=== PATIENT | female | born 1985 | race Caucasian/White ===

== ENCOUNTER 2022-04-30 02:20 | Emergency (ER) | payer MEDICAID, SELFPAY ==
[2022-04-30 02:24] VITALS: BP 142/102; PULSE 99; RESP 18; TEMP 36.7; O2SAT 98; BMI 35.9
--- NOTE | 2022-04-30 02:31 | XRR_ITS ---
PROCEDURE INFORMATION: Exam: XR Right Foot Exam date and time: 04/30/2022 2:34 AM Age: 36 years old Clinical indication: Right; Patient HX: C/O RT foot pain along lateral border of foot. No injury. TECHNIQUE: Imaging protocol: Radiologic exam of the Right foot. Views: 3 or more views. COMPARISON: No relevant prior studies available. FINDINGS: Bones/joints: No acute fracture or malalignment. Mild hallux valgus deformity with mild 1st MTP joint degenerative changes. Calcaneal enthesopathy. Soft tissues: Normal. XR/XR foot RT min 3V* [id number] IMPRESSION: No acute fracture or malalignment.
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
[2022-04-30] MEDS: naproxen 500 mg Tablet PO (02:55)
[2022-04-30] MEDS: HYDROcodone-acetaminophen 5-325 mg Tablet 1 TAB PO (02:55)
== END 2022-04-30 03:00 | disposition home or self-care (01) ==
PROVIDERS: Emergency Provider Nurse Practitioner Family
DX: M20.11 Hallux valgus (acquired), right foot (principal); M77.31 Calcaneal spur, right foot
CPT/HCPCS: 73630; 99283

== ENCOUNTER 2023-11-20 11:16 | Emergency (ER) | payer MEDICAID, SELFPAY ==
--- NOTE | 2023-11-20 11:18 | XR_ITS ---
WS: [id number] Exam: XR chest 1V portable [id number] Date/Time of Exam: 11/20/2023 11:18 AM Reason For Exam: cough Findings: The lungs are clear and fully expanded. Costophrenic angles are sharp. No infiltrates. Bronchovascula r relief appears normal. Cardiac silhouette is unremarkable. Bony elements are intact. IMPRESSION: Unremarkable chest radiograph.
[2023-11-20 11:56] VITALS: BP 134/88; PULSE 101; RESP 16; TEMP 36.7; O2SAT 98
--- NOTE | 2023-11-20 12:18 | ED_ITS ---
HPI - General Adult 2 General: Chief complaint: General Medical Stated complaint: cough Time Seen by Provider: 11/20/23 11:18 Source: patient Mode of arrival: ambulatory Limitations: no limitations History of Present Illness: 38-year-old female states over the last months she has had a continuous cough. States has been a nonproductive cough has been much worse at night she denies any chest pain she denies any shortness of breath she had no vomiting. States she has been on Augmentin along with steroids with minimal improvement. Associated symptoms: Deny chest pain, dyspnea, headache(s), nausea, rash or vomiting Review of Systems 2 Const: Denies: fever(s), chills, body aches or change in appetite ENMT: Denies: throat pain or dental pain Card: Denies: chest pain Resp: Reports: non-productive cough; Denies: dyspnea GI: Denies: abdominal pain, nausea, vomiting or diarrhea Musc: Denies: neck pain or back pain Skin/Breast: Denies: rash Neuro: Denies: headache(s) Physical Exam 2 Const: COMMON NORMALS: no acute distress, patient oriented x3 and healthy appearing HENMT: COMMON NORMALS: normocephalic and atraumatic HEAD & SCALP: n ormocephalic and atraumatic Eye: COMMON NORMALS: conjunctivae normal CONJUNCTIVA: Yes conjunctivae normal Neck/C-Spine: COMMON NORMALS: full ROM and supple Chest: COMMONS NORMALS: normal inspection of the chest Resp: COMMON NORMALS: normal respiratory effort, No retractions, No use of accessory muscles and clear to auscultation bilaterally AUSCULTATION: clear to auscultation bilaterally Cardio: COMMON NORMALS: regular rate, regular rhythm and No murmurs present (Cardio) RATE: regular rate RHYTHM: regular rhythm Extremity: COMMON NORMALS: normal to inspection and full ROM Neuro: COMMON NORMALS: patient oriented x3, moves all extremities and no focal motor deficits Psych: COMMON NORMALS: mental status grossly normal, Normal thought process present and cooperative THOUGHT PROCESS: Normal thought process present Skin: COMMON NORMALS: no rashes or lesions noted and no wounds GENERAL SKIN EXAM: no rashes or lesions noted Course 2 Vital Signs: Vital signs: Vital Signs Temperature 98.0 F 11/20/23 11:56 Pulse Rate 103 H 11/20/23 13:15 Respiratory Rate 18 11/20/23 13:15 Blood Pressure 134/88 11/20/23 11:56 Pulse Oximetry 99 11/20/23 13:15 Oxygen Delivery Me thod Room Air 11/20/23 13:15 MDM - General Adult Medical Decision Making Patient presents with cough has been ongoing she is well-appearing here x-ray blood works normal she is concerned about pertussis will send off pertussis lab Medical Records I reviewed the patient's medical records. Lab Data I reviewed the patient's lab results. 11/20/23 12:27 11/20/23 12:27 Laboratory Results WBC 10.11 10^3/uL (3.29-11.43) 11/20/23 12: RBC 4.28 10^6/uL (3.85-5.65) 11/20/23 12: Hgb 13.80 g/dL (11.27-16.99) 11/20/23 12: Hct 40.1 % (36-47) 11/20/23 12: MCV 93.7 fl (85-98) 11/20/23 12: MCH 32.2 pg (27-33) 11/20/23 12: MCHC 34.4 g/dL (30-55) 11/20/23 12: RDW 12.5 % (12.1-15.1) 11/20/23 12: Plt Count 249 10^3/cmm (157-399) 11/20/23 12: MPV 9.2 fL (7.4-10.4) 11/20/23 12: Neut % (Auto) 62.2 % 11/20/23 12: Lymph % (Auto) 27.4 % 11/20/23 12: Grainger % (Auto) 6.8 % 11/20/23 12: Eos % (Auto) 3.0 % 11/20/23 12: Baso % (Auto) 0.4 % 11/20/23 12: Neut # (Auto) 6.29 10^3/uL (1.8-7.7) 11/20/23 12: Lymph # (Auto) 2.8 10^3/uL (0.8-4.8) 11/20/23 12:27 Grainger # (Auto) 0.7 10^3/uL (0.2-0.9) 11/20/23 12:27 Eos # (Auto) 0.3 10^3/uL (0.0-0.8) 11/20/23 12: Baso # (Auto) 0.0 10^3/uL (0.0-0.1) 11/20/23 12:27 Nucleated RBC % (auto) 0 % 11/20/23 12: Nucleated RBCs # 0.0 /100WBC 11/20/23 12:27 Sodium 137 mmol/L (136-145) 11/20/23 12: Potassium 3.6 mmol/L (3.5-5.1) 11/20/23 12: Chloride 99 mmol/L (98-107) 11/20/23 12: Carbon Dioxide 26 mmol/L (22-29) 11/20/23 12: Anion Gap 15.6 (5-19) 11/20/23 12: BUN 15 mg/dL (6-20) 11/20/23 12: Creatinine 0.4 mg/dL (0.5-0.9) L 11/20/23 12:27 GFR Calculation 177.7 mL/min (90-130) H 11/20/23 12: Glucose 93 mg/dL (65-115) 11/20/23 12: Calculated Osmolality 285 mOsm/kg (285-295) 11/20/23 12: Calcium 9.5 mg/dL (8.5-10.5) 11/20/23 12: Total Bilirubin 0.5 mg/dL (0.15-1.2) 11/20/23 12: AST 21 U/L (0-32) 11/20/23 12:27 ALT 21 U/L (0-33) 11/20/23 12:27 Alkaline Phosphatase 79 U/L (35-105) 11/20/23 12:27 Total Protein 7.1 g/dL (6.6-8.7) 11/20/23 12: Albumin 4.3 g/dL (3.5-5.2) 11/20/23 12: Globulin 2.8 g/dL (1.3-4.6) 11/20/23 12:27 All radiology interpretation(s) finalized by discharge Discharge Plan Discharge Patient Disposition: Home Clinical Impression: Cough Condition: Stable Prescriptions: No Action simvastatin 10 mg tablet 10 mg PO QPM valsartan-hydrochlorothiazide 160-25 mg tablet 1 tab PO QAM Discharge Orders: Discharge ED (Routine); Ordered 11/20/23 Ordered By: Jose Garcia Referrals: Wayne Petit MD [Primary Care Provider] - 1-3 days Discharge Diet: Advance as tolerated Discharge Activity: Resume usual activity Patient Instructions: Acute Cough (ED) Coding Level of Care Code ED Manager [employer] Processing for Serafin Cueto
[2023-11-20] MEDS: dexamethasone 10 mg/mL INJ IM (12:22)
[2023-11-20 12:36] LABS: Basophils % 0.4 %; Eosinophils # 0.3 10^3/uL (0.0-0.8); Hematocrit 40.1 % (36-47); Lymphocytes # 2.8 10^3/uL (0.8-4.8); Lymphocytes % 27.4 %; Mean Corpuscular HGB Conc 34.4 g/dL (30-55); Mean Corpuscular Hemoglobin 32.2 pg (27-33); Mean Corpuscular Volume 93.7 fl (85-98); Mean Platelet Volume 9.2 fL (7.4-10.4); Monocytes # 0.7 10^3/uL (0.2-0.9); Monocytes % 6.8 %; Neutrophils # 6.29 10^3/uL (1.8-7.7); Neutrophils % 62.2 %; Nucleated Red Blood Cells % 0 %; Platelet Count 249 10^3/cmm (157-399); Red Blood Count 4.28 10^6/uL (3.85-5.65); Red Cell Distribution Width 12.5 % (12.1-15.1); White Blood Count 10.11 10^3/uL (3.29-11.43)
[2023-11-20 12:53] LABS: Alanine Aminotransferase 21 U/L (0-33); Albumin Level 4.3 g/dL (3.5-5.2); Alkaline Phosphatase 79 U/L (35-105); Anion Gap 15.6 (5-19); Aspartate Amino Transferase 21 U/L (0-32); Blood Urea Nitrogen 15 mg/dL (6-20); Calcium 9.5 mg/dL (8.5-10.5); Carbon Dioxide 26 mmol/L (22-29); Chloride 99 mmol/L (98-107); Creatinine Clr Calc Pharmacy 227.4226; Globulin 2.8 g/dL (1.3-4.6); Glomerular Filtration Rate 177.7 mL/min (90-130); Glucose 93 mg/dL (65-115); Osmolality Calculated 285 mOsm/kg (285-295); Potassium 3.6 mmol/L (3.5-5.1); Sodium 137 mmol/L (136-145); Total Bilirubin 0.5 mg/dL (0.15-1.2); Total Protein 7.1 g/dL (6.6-8.7)
[2023-11-20 13:15] VITALS: PULSE 103; RESP 18; O2SAT 99
[2023-11-20] MEDS: albuterol 8 gm MDI 2 PUFF INHALATION (13:16)
[2023-11-20 13:39] VITALS: BP 125/84; PULSE 105; O2SAT 94
[2023-11-25 19:55] LABS: Bordetella Pertussus AB IGA <1 IU/mL; Bordetella Pertussus AB IGG 4 IU/mL
== END 2023-11-20 13:40 | disposition home or self-care (01) ==
PROVIDERS: Emergency Provider Emergency Medicine; PCP Family Medicine Adult Medicine
DX: R05.9 Cough, unspecified (principal)
CPT/HCPCS: 71045; 80053; 85025; 86615; 94640; 96372; 99284; J1100; J3535

== ENCOUNTER 2025-07-19 09:59 | Emergency (ER) | payer MEDICAID, SELFPAY ==
--- OUTSIDE RECORDS SUMMARY | 2025-07-15 08:23 | XMS_ITS | Continuity of Care Document ---
Author Organization [facility] Address [address] [place] [address] Phone Care Team Providers Care Retread Mold Operator Name Role Phone Physician, Miscellane Family Provider Unavailabl e Aki Malik MD Emergency Provider Care Teams Patient Care Team Team Status: Active Member Role/Relationship Status Dates Miscellane Physician Family Provider Active Miscellane Physician Primary Care Provider Active Patient Care Team Team Status: Inactive Member Role/Relationship Status Dates Miscellane Physician Primary Care Provider Active Start: July 15, 2025 End: July 15, 2025 Miscellane Physician Family Provider Active Star t: July 15, 2025 End: July 15, 2025 Aki Malik MD Emergency Provider Active Star t: July 15, 2025 End: July 15, 2025 Chief Complaint and Reason for Visit Chief Complaint Admit Date RIGHT SIDE PAIN IN CREASE OF LEG [facility] 2024 11:50am Allergies, Adverse Reactions, Alerts Allergen Type Severity Reaction Last Updated Verified Status sulfamethoxazole Allergy Unknown HIVES September 03, 2022 11:5 9am No Active trimethoprim Allergy Unknown HIVES September 03, 2022 11:59am No Active Social History Smoking Status Status Start Date End Date Date of Observa tion Unknown if ever smoked Dece faustino 2024 1:00pm Observation Status Observation Response Date of Response Legal Sex Female Sex Assigned At Female October Status Unknown if patient is July 15, 2025 Problems Active Problems Problem Diagnosis/Recorded Date Onset Date Stat us Abdominal pain, RLQ July 15, 2025 1:35pm Unknown Active UTI (urinary tract infection) July 15, 2025 1:39p m Unknown Active 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, 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 Muscle spasm of back July 15, 2025 1:35pm Unknown Active Right flank pain July 15, 2025 1:35pm Unknown Active Hypokalemia July 15, 2025 1:41pm Unknown Ac tive Medications Medication Status Dose Units Route Directions Qty Days Refills S tart Date Stop Date End Date Reason(s) Instructions Adherence Lisinopril 10 mg Tablet Active 10 MG 2022 12:00a m Unknown Prednisone 20 mg tablet Discont inued 20 MG PO TWICE A DAY 14 7 0 2022 12:00a m Febru juli 2022 12:00 am Febru juli 2022 12:02 am Valacyclovi r 1 gram tablet Discont inued 1000 MG PO TWICE A DAY 14 7 0 2022 12:00a m Febru juli 2022 12:00 am Febru juli 2022 12:02 am Tizanidine 4 mg tablet Active 4 MG PO THREE TIMES A DAY as needed for Muscle Spasms 30 0 Decemb er 2024 12:00a m Unknown Cephalexin 500 mg capsule Active 500 MG PO THREE TIMES A DAY 30 0 Decemb er 2024 12:00a m Unknown Procedures Procedure Date Performed Status CT Abd/Pelvis W/O Contrast July 15, 2025 12 :31pm completed Relevant Diagnostic Tests and/or Laboratory Data Laboratory Results Test Collection Date/Time Result Date/Time Result Interpretation Reference Range Result Comment Performing Site White Blood Count July 15, 2025 12:43pm July 15, 2025 12:49pm 7.9 10*3/uL 4.5-11.0 1249, 07/15/25 [facility] [id number] Red Blood Count July 15, 2025 12:43pm July 15, 2025 12:49pm 3.89 10*6/uL decreased 4.2-5.4 [place] [id number] Hemoglob in July 15, 2025 12:43pm July 15, 2025 12:49pm 12.4 g/dL 12.0-16.0 [place] [id number] Hematocr it July 15, 2025 12:43pm July 15, 2025 12:49pm 36.7 % 36.0-48.0 [address]13137 Mean Corpuscu lar Volume July 15, 2025 12:43pm July 15, 2025 12:49pm 94.3 fL 80-100 [address]4198 Mean Corpuscu lar Hemoglob in July 15, 2025 12:43pm July 15, 2025 12:49pm 31.9 pg 27-32 [address]00651 Mean Corpuscu lar Hemoglob in Concent July 15, 2025 12:43pm July 15, 2025 12:49pm 33.8 g/dL 31.0-37.0 [id number] Red Cell Distribu tion Width July 15, 2025 12:43pm July 15, 2025 12:49pm 12.8 % 12-14.[address]-5477215 Platelet Count July 15, 2025 12:43pm July 15, 2025 12:49pm 315 10*3/uL 833-958 2324, 07/15/25 [address]4000014 Mean Platelet Volume July 15, 2025 12:43pm July 15, 2025 12:49pm 8.7 fL decreased 9.1-13.2 [address]0004015 Neutroph ils (%) (Auto) July 15, 2025 12:43pm July 15, 2025 12:49pm 67.3 % 40-[address]-2927413 Lymphocy umesh (%) (Auto) July 15, 2025 12:43pm July 15, 2025 12:49pm 23.3 % 20-[address]-9743545 Monocyte s (%) (Auto) July 15, 2025 12:43pm July 15, 2025 12:49pm 5.1 % 2-[address]-4314215 Eosinoph ils (%) (Auto) July 15, 2025 12:43pm July 15, 2025 12:49pm 3.7 % 0-[address]-9327837 Basophil s (%) (Auto) July 15, 2025 12:43pm July 15, 2025 12:49pm 0.3 % 0-[address]26649 Neutroph ils # (Auto) July 15, 2025 12:43pm July 15, 2025 12:49pm 5.29 10*3/uL 1.8-7.7 [address]76506 Lymphocy umesh # (Auto) July 15, 2025 12:43pm July 15, 2025 12:49pm 1.83 10*3/uL 0.9-4.[address]354759 Monocyte s # (Auto) July 15, 2025 12:43pm July 15, 2025 12:49pm 0.4 10*3/uL 0-0.8 [address]686594 Eosinoph ils # (Auto) July 15, 2025 12:43pm July 15, 2025 12:49pm 0.29 10*3/uL 0-0.7 [address]0491401 Basophil s # (Auto) July 15, 2025 12:43pm July 15, 2025 12:49pm 0.02 10*3/uL 0-0.[address]2531251 Immature Granuloc yte % (Auto) July 15, 2025 12:43pm July 15, 2025 12:49pm 0.3 % 0-0.7 [address]50407 Absolute Immature Granuloc yte (auto July 15, 2025 12:43pm July 15, 2025 12:49pm 0.02 10*3/uL 0.00-0.06 [address]0786217 Prothrom bin Time July 15, 2025 12:43pm July 15, 2025 1:00pm 12.9 s 11.7-14.[address]-2482827 INR Internat ional Normaliz ed Ratio July 15, 2025 12:43pm July 15, 2025 1:00pm 1.0 decreased 2.0-3.[address]-9621570 Urine Color July 15, 2025 1:05pm July 15, 2025 1:15pm Yellow [address]-9019138 Urine Clarity July 15, 2025 1:05pm July 15, 2025 1:15pm Slightly [address]5310976 Urine Glucose (UA) July 15, 2025 1:05pm July 15, 2025 1:15pm Negative Negative [facility] [id number] Urine Bilirubi n July 15, 2025 1:05pm July 15, 2025 1:15pm Negative Negative [place] [id number] Urine Ketones July 15, 2025 1:05pm July 15, 2025 1:15pm Negative Negative [place] [id number] Urine Specific [place] July 15, 2025 1:05pm July 15, 2025 1:15pm >= 1.030 1.001-1.03 0 [facility] [id number] Urine Blood July 15, 2025 1:05pm July 15, 2025 1:15pm Large increased Negative [place] [id number] Urine pH July 15, 2025 1:05pm July 15, 2025 1:15pm 5.5 5.0-8.5 [place] [id number] Urine Protein July 15, 2025 1:05pm July 15, 2025 1:15pm Trace increased Negative [place] [id number] Urine Urobilin ogen July 15, 2025 1:05pm July 15, 2025 1:15pm 0.2 0.2-2 mg/dL [place] [id number] Urine Nitrite July 15, 2025 1:05pm July 15, 2025 1:15pm Negative Negative [place] [id number] Urine Leukocyt e Esterase July 15, 2025 1:05pm July 15, 2025 1:15pm Trace increased Negative [place] [id number]-[id number] Urine WBC July 15, 2025 1:05pm July 15, 2025 1:15pm 0-5 [HPF] 0-3 [facility] [id number] Urine RBC July 15, 2025 1:05pm July 15, 2025 1:15pm 10-15 [HPF] 0-2 [place] [id number]-[id number] Urine Squamous Epitheli al Cells July 15, 2025 1:05pm July 15, 2025 1:15pm 5-10 [HPF] [place] [id number] Urine Bacteria July 15, 2025 1:05pm July 15, 2025 1:15pm Trace [HPF] increased [address]-1397217 Glomerul ar Filtrati on Rate Calc July 15, 2025 12:43pm July 15, 2025 1:04pm 128 mL/min 90-120 >=90 Tckexw01-83 Mildly Pnsqltcyc14 -59 Mildly to Moderately Zfsqcorsx17 -44 Moderately to Severely Zqreeplez94 -29 Severely Decreased<1 5 Kidney Failure [address]3403307 B-Type Natriure tic Peptide July 15, 2025 12:43pm July 15, 2025 1:14pm 56.60 pg/mL [address]4485267 B-Type Natriure tic Peptide Comment July 15, 2025 12:43pm July 15, 2025 12:48pm See below ng/mL BNP TEST RESULTS AGE GROUP INTERPRETAT ION (pg/mL) <300 ALL Negative: Heart Failure Unlikely___ __>=300 to <450 22-<50 Kelly Zone: Result Indetermina te >=300 to <900 50-<75 Consider other causes of NT-proBNP>= 300 to <1800 >=75 elevation * >=450 22-<50 >=900 50-<75 Positive: Heart >=1800 >=75 Failure Likely [place] [id number] Glucose Level July 15, 2025 12:43pm July 15, 2025 1:04pm 92 mg/dL 74-[address]-7891688 Blood Urea Nitrogen July 15, 2025 12:43pm July 15, 2025 1:04pm 18 mg/dL increased 7-17 [place] [id number] Creatini ne July 15, 2025 12:43pm July 15, 2025 1:04pm 0.4 mg/dL decreased 0.7-1.[address]-0026974 BUN/Crea tinine Ratio July 15, 2025 12:43pm July 15, 2025 1:04pm 45.0 RATIO increased 12-[address]-3081696 Sodium Level July 15, 2025 12:43pm July 15, 2025 1:04pm 138 mmol/L 137-[address]-9792574 Potassiu m Level July 15, 2025 12:43pm July 15, 2025 1:04pm 3.4 mmol/L decreased 3.5-5.[address]-6890788 Chloride Level July 15, 2025 12:43pm July 15, 2025 1:04pm 107 mmol/L 98-[address]-8588783 Carbon Dioxide Level July 15, 2025 12:43pm July 15, 2025 1:04pm 26 mmol/L 22-[address]-0784240 Calcium Level July 15, 2025 12:43pm July 15, 2025 1:04pm 8.8 mg/dL 8.4-10.[address]-2968437 Anion Gap July 15, 2025 12:43pm July 15, 2025 1:04pm 8.4 mmol/L decreased 11.0-20.[address]-2606704 Calculat ed Osmolali ty July 15, 2025 12:43pm July 15, 2025 1:04pm 277 mosm/kg 265.85-296 .[address]-9987849 Total Protein July 15, 2025 12:43pm July 15, 2025 1:04pm 7.0 g/dL 6.3-8.[address]-8716692 Albumin July 15, 2025 12:43pm July 15, 2025 1:04pm 4.1 g/dL 3.5-5.[address]-7950491 Globulin July 15, 2025 12:43pm July 15, 2025 1:04pm 2.9 g/dL 2.2-4.2 [place] [id number] Albumin/ Globulin Ratio July 15, 2025 12:43pm July 15, 2025 1:04pm 1.40 RATIO 1.10-2.[address]-0757200 Total Bilirubi n July 15, 2025 12:43pm July 15, 2025 1:04pm 0.70 mg/dL 0.2-1.3 [address]7552621 Aspartat e Amino Transf (AST/SGO T) July 15, 2025 12:43pm July 15, 2025 1:04pm 20 U/L 14-36 [address]3750577 Alanine Aminotra nsferase (ALT/SGP T) July 15, 2025 12:43pm July 15, 2025 1:04pm 18 U/L 9-52 [address]2127030 Alkaline Phosphat ase July 15, 2025 12:43pm July 15, 2025 1:04pm 72 U/L 38-[address]-5538717 Total Amylase July 15, 2025 12:43pm July 15, 2025 1:04pm 57 U/L 30-[address]-3609313 Lipase July 15, 2025 12:43pm July 15, 2025 1:04pm 48 U/L 23-[address]-1919519 Troponin I July 15, 2025 12:43pm July 15, 2025 1:14pm < 0.012 ng/mL 0.0-0.[address]-8197733 Lactic Acid Level July 15, 2025 12:43pm July 15, 2025 1:02pm 0.9 mmol/L 0.4-2.0 [address]5355299 Procalci tonin July 15, 2025 12:43pm July 15, 2025 1:19pm < 0.030 ng/mL <0.5 SEPSIS:<0.5 ng/mL - Low risk for progression to severe sepsis and/or septic shock0.5-2. 0 ng/mL - Sepsis should be considered; recommend recollectio n at 6-24 hours for repeat testing>2.0 ng/mL - High risk for progression to severe sepsis and/or septic shock [address]-6750689 Diagnostic Imaging Reports Author Chanel Rodríguez [facility] Report Date/Time July 15, 2025 1 :03pm [facility] [address], [place] [address] [phone] Radiology Report Patient: DAMIEN SMITH Completed: 07/15/25 1231 Date of Service: 07/15/25 MR #: [id number] /AGE/SEX:1985 / 39 / F Room/Bed: Location: ER Exam: CT Abd/Pelvis W/O Contrast Reason: RLQ abd pain Ordering Provider: Aki Malik MD Attending Provider: CC: Chanel Rodríguez MD; Physician, Miscellaneous; Aki Malik MD Report Number:[id number] exams last year 1 COMPARISON: No priors available for comparison. TECHNIQUE: Axial images were obtained through the abdomen and pelvis without intravenous contrast. Coronal and sagittal reconstructions were performed. FINDINGS: Lung bases are clear. The liver, gallbladder, spleen, pancreas, adrenal glands and kidneys are within normal limits. No perinephric stranding or hydronephrosis. Stomach, small bowel and colon show no obstructive or inflammatory change. Normal appendix. No free fluid. No free air. No lymphadenopathy. No acute skeletal abnormality. Fat-containing umbilical hernia present with no inflammatory or obstructive change. IMPRESSION: No acute findings of the abdomen or pelvis. All radiology exams are performed following ALARA, all CT images are acquired using automated exposure control. End of Report Dictated by: Chanel Rodríguez MD 07/15/25 1256 Petal Shaper Hand: CHANEL RODRÍGUEZ 07/15/25 1256 Signed by: Chanel Rodríguez MD 07/15/25 1304 Vital Signs Vital Reading Result Reference Range Collection Date/Time Height 65 [in_i] July 15, 025 12:02pm Weight 215.00 [lb_av] July 15, 2025 12:02pm Body Temperature 98 [degF] 97.6-99.6 July 2:19pm Heart Rate 83 /min 60-90 July 15 025 2:19pm Respiratory rate 14 /min 12-July 2:19pm Oxygen saturation by Pulse oximetry 99 % 95-100 July 15, 2025 1 2:02pm BP Systolic 142 mm[Hg] July 15 2:19pm BP Diastolic 89 mm[Hg] July 15 2:19pm BMI (Body Mass Index) 35.8 kg/m2 [facility] er 2024 12:02pm Insurance Providers Guarantor DAMIEN SMITH Address [address] [place] [address] Contact Info. Home Phone: Coverage Status Update:2025 Payer Group Member ID Coverage Type Subscriber Relationship to Subscriber Effective Date Expiration Date MEDICAID EDS Id: MOHNET [id number] null DAMIEN SMITH Id: [id number] [facility] [place] [address] Home Phone: Email: [email or web address] Self Encounters Encounter Location(s) Arrival/Admit Date Discharge/Departure Date Discharge/Departure Disposition Provider(s) Departed Emergency [facility] July 15, 2025 11:50am July 15, 2025 2:20pm Discharged to home care or self care (routine discharge) Mental Status Observation Response Date Recorded Mental Status Alert July 15 1:00pm Oriented x 3 July 15 1:00pm Cognitive/Mental Status Assessments Plan of Treatment Future Tests Future scheduled test information is unavailable Pending Tests Pending diagnostic test information is unavailable Future Visits Future appointment information is unavailable Future Procedures Future procedure information is unavailable Future Medications Future medication information is unavailable Patient Instructions Instruction Admit Date General Discharge Instructions July 15, 2025 11:50am Hospital Discharge Instructions Additional Instructions Pt adv to drink plenty of fluids rich in electrolytes to avoid subtle dehydration. Pt adv NOT TO USE any NSAID's like ibuprofen, Naproxen, Aspirin, BC powder, Advil, Motrin and can take Tylenol as needed for pain control as she had HTN hx. Will add muscle relaxer to tx plan. Adv not to drive after taking ms relaxers. Thank you for choosing [facility] for your medical care and we have taken the upmost efforts to take care of your needs. We have examined and treated you today on an emergency basis only. This was not a substitute for, or an effort to provide, complete medical care. In most cases, you must let your Primary care provider (PCP) check you again. Tell your PCP about any new or lasting problems. We cannot recognize and treat all injuries or illnesses in one Emergency Department visit. If you had special tests, such as CT???s or X-rays, these will be reviewed by radiologist and we will call you, if there are any new suggestions. Pt adv that new s/s still can develop and if anything new develops pt should come back to ER for evaluation. Pt feels comfortable to go home with close monitoring of symptoms. Nontoxic, no acute respiratory distress, lungs clear. Pulse ox stable. Not requiring supplemental oxygen. Patient feels much better. Pt wants to go home; strict return precautions discussed with patient. You have been screened and evaluated and felt safe for discharge. Health conditions do change or evolve sometimes and as such it is important that you follow up with your Primary Doctor to be re checked, 3-5 days is a general good time frame for follow up. You are always welcome to return to the ED for re assessment if your symptoms are worsening or you have new concerns. Take medicines as prescribed. Monitor for any side effects or adverse events from medications. If any side effect, adverse event or rash develops, or if you suspect any other adverse reaction to the medication, then discontinue the medication immediately and contact ER/PCP or go to the nearest ER. Narcotic meds / sedative meds/ muscle relaxers instruction:- You may have been prescribed pain medications or other medications with sedative effect on the brain, that can affect your mental alertness. Pt advised not to drive, operate any machinery or go into water after taking these meds as it may impair mental ability to react to the situation in an appropriate manner. Continue other current medicines that you were already on, unless otherwise specifically advised. Follow up with PCP within 24-48 hrs, or sooner if symptoms worsen or fail to improve. You may need to see a specialist for your condition and your PCP should arrange a referral to such a specialist care. Sometimes steroids are required to control your condition. Pt has been made aware of possible side effects of steroids including but not limited to elevated blood glucose, bone loss, avascular necrosis of hip requiring surgery, weight gain, increased anxiety, and insomnia etc. Pt understands these side effects and agrees to take recommended treatment. Patient / patient???s guardian verbalizes understanding of treatment plan, medication, and side effects and agrees with treatment plan. Discharge instructions reviewed verbally and given to patient in written form. Pt advised to return to ER if s/s do not improve or new s/s develops. Return to ER for any Stroke like symptoms, TIA, nausea/vomiting, confusion, drowsiness or changed in your level consciousness, worsening headache, clear or blood tinged drainage from ears or nostrils, onset of seizures, trouble walking, weakness in legs or arms, any double vision or difficulty with your eyesight, Diarrhea, chest pain or abdominal pain. Patient leaves ER in stable condition under his/her own ability to walk and with competent mind to understand the discharge instructions and ability to follow the instructions.
--- OUTSIDE RECORDS SUMMARY | 2025-07-19 10:07 | XMS_ITS | Patient Health Record ---
Author Organization [facility] Address [address] [facility] [address] [place] [address] Care Team Providers Care Supervisor Stage Carpentry Name Role Phone Ying Wadsworth Unavailable [phone] Allergies Allergen (clinical drug ingredient) Drug/Non Drug Allergy documented on EMR Reaction Allergy Type Onset Date Status sulfamethoxazole / trimethoprim Bactrim Unknown Drug Allergy Active Reason For Referral No Information Medications Medication SIG (Take, Route, Frequency, Duration) Notes Start Date End Date Status Golytely 236 GM Solution Reconstituted as directed Orally split dose 07/23/2019 Active Fenofibrate Active Social History Tobacco Use: Social History Observation Description Date Details (start date - stop date) Current Smoker 07/23/2005 - NA Social History Drugs/Alcohol: Social Info Question Answer Notes Alcohol Screen Did you have a drink containing alcohol in the past year? Yes How often did you have a drink containing alcohol in the past year? Monthly or less (1 point) How many drinks did you have on a typical day when you were drinking in the past year? 1 or 2 drinks (0 point) How often did you have 6 or more drinks on one occasion in the past year? Never (0 point) Points 1 Interpretation Negative Tobacco Use: Social Info Question Answer Notes Tobacco Use/Smoking Smoking Status: current smoker Patient counselled on the dangers of smoking 07/23/2019 Are you interested in quitting? Ready to quit How often do you smoke cigarettes? every day How soon after you wake up do you smoke your first cigarette? after 60 minutes How many cigarettes a day do you smoke? 5 or less When did you start smoking? 07/23/2005 When did you start smoking? 07/23/2005 When did you start smoking? 07/23/2005 Plan Of Treatment Pending Test Test Name Order Date Colonoscopy 07/23/2019 Stool Culture 07/23/2019 Fecal calprotectin 07/23/2019 OVA AND PARASITES, CONC/PERM SMEAR, 3 SP EC 07/23/2019 GIARDIA AG, EIA, STOOL 07/23/2019 CLOSTRIDIUM DIFFICILE TOXIN/GDH W/REFL T O PCR 07/23/2019 fecal elastase 07/23/2019 CRP 07/23/2019 stool wbc 07/23/2019 Insurance Providers Payer Name Payer Address Payer Phone Subscriber Number Group Number Insured Name Patient Relationship to Insured Coverage Start Date Coverage End Date [employer] Medicaid [address] [address] [place] [address] [phone] [id number] Yary Larios Self - patient is the insured Medical (General) History Medical History History ICD Code hyperlipidemia Surgical History Surgery Date(Month/Year)
--- OUTSIDE RECORDS SUMMARY | 2025-07-19 10:07 | XMS_ITS | Patient Health Record ---
Author Organization [facility] Address [address] [place] [address] Care Team Providers Care Trucking Contractor Name Role Phone Liz SCHAFFER [place] Primary Care Provider Unavailable Samantha Ramsay Unavailable [phone] Reason For Referral No Information Problems Problem Type SNOMED Code ICD Code Onset Dates Problem Status W/U Status Risk Notes Problem Missed period (90168206) Missed period (N92.6) Active confirmed Problem Amenorrhea (35651967) Amenorrhea, secondary (N91.1) Active confirmed Plan Of Treatment Pending Test Test Name Order Date CBC w\ Auto Diff 16296 06/02/2021 Follicle Stimulating Hormone (FSH) 91193 06/02/2021 Glucose 2 Hr Post Prandial--52727 2020 Insulin Level 57902 06/02/2021 Luteinizing Hormone 86320 06/02/2021 Progesterone (B) 40049 06/02/2021 Prolactin 30753 06/02/2021 Thyroid Stimulating Hormone (TSH) 36326 06/02/2021 Glucose Fasting--05184 06/02/2021 Insulin 2 [place] [address] 06/02/2021 Insurance Providers Payer Name Payer Address Payer Phone Subscriber Number Group Number Insured Name Patient Relationship to Insured Coverage Start Date Coverage End Date [place] [address] [place] [id number] [phone] [id number] DAMIEN SMITH Self - patient is the insured
[2025-07-19 10:11] VITALS: BP 153/93; PULSE 100; RESP 18; TEMP 36.6; O2SAT 98; BMI 34.7
--- NOTE | 2025-07-19 10:17 | W.ED.BACK ---
HPI - Back Pain/Injury General: Chief Complaint: Back Pain/Injury Stated Complaint: Lower back going down to L hip Pain Time Seen by Provider: 07/19/25 10:12 History of Present Illness: 39-year-old female with a history of hypertension and obesity who presents emergency room with right sided back pain. She is having low back pain that radiates into her buttock. This been present for few days now. Says has been keeping her from going to work. She was seen at an outside hospital and was given some tizanidine but says that helped for a while but then goes away and then seems to be worse afterwards. No saddle numbness, no fecal or urinary retention or incontinence, no focal motor deficit, no sensory deficit. Related Data Home Medications ?Medication ?Instructions ?Recorded ?Confirmed simvastatin 10 mg tablet 10 mg PO QPM 11/20/23 07/19/25 valsartan 160 1 tab PO QAM 11/20/23 07/19/25 mg-hydrochlorothiazide 25 mg tablet cephalexin 500 mg capsule 500 mg PO TID X10D 07/19/25 07/19/25 tirzepatide (weight loss) 5 mg/0.5 5 mg SUBCUT Q7D 07/19/25 07/19/25 mL subcutaneous pen injector (Zepbound) tizanidine 4 mg tablet 4 mg PO TID PRN muscle spasms 07/19/25 07/19/25 Previous Rx's ?Medication ?Instructions ?Recorded diclofenac sodium 50 mg 50 mg PO BID PRN pain #14 tabs 07/19/25 tablet,delayed release hydrocodone 5 mg-acetaminophen 325 1 tab PO Q6H PRN pain #20 tabs 07/19/25 mg tablet polyethylene glycol 3350 17 17 g PO DAILY #510 grams 07/19/25 gram/dose oral powder (Miralax) prednisone 20 mg tablet 60 mg (3 x 20 mg) PO DAILY #20 tabs 07/19/25 Allergies Allergy/AdvReac Type Severity Reaction Status Date / Time Sulfa (Sulfonamide Allergy ALGY-Hives Verified 08/13/24 08:30 Antibiotics) Review of Systems Narrative: Constitutional symptoms: Negative except as documented in HPI. Skin symptoms: Negative except as documented in HPI. Eye symptoms: Negative except as documented in HPI. ENMT symptoms: Negative except as documented in HPI. Respiratory symptoms: Negative except as documented in HPI. Cardiovascular symptoms: Negative except as documented in HPI. Gastrointestinal symptoms: Negative except as documented in HPI. Genitourinary symptoms: Negative except as documented in HPI. Musculoskeletal symptoms: Negative except as documented in HPI. Neurologic symptoms: Negative except as documented in HPI. Psychiatric symptoms: Negative except as documented in HPI. Endocrine symptoms: Negative except as documented in HPI. Physical Exam Narrative: EXAM NARRATIVE: General: Alert, no acute distress. Head: Normocephalic Neck: Trachea midline Eye: Extraocular movements are intact. Ears, nose, mouth and throat: Oral mucosa moist Respiratory: Respirations are non-labored Musculoskeletal: Normal ROM Back: no step off, no focal tenderness, some paraspinal muscle tenderness Neurological: Alert and oriented, No focal neurological deficit observed. Psychiatric: Cooperative, appropriate mood & affect. Course Vital Signs: Vital signs: Vital Signs Temperature 97.8 F 07/19/25 10:11 Pulse Rate 100 07/19/25 10:11 Respiratory Rate 18 07/19/25 11:29 Blood Pressure 153/93 07/19/25 10:11 Pulse Oximetry 98 07/19/25 11:29 Oxygen Delivery Me thod Room Air 07/19/25 11:29 MDM - Back Pain/Injury Medical Decision Making Medical decision making Patient's reason for coming to the emergency room: Low back pain Social determinants: Patient is employed I reviewed the patient's medical record. Patient most recently seen here in August and neurology for carpal tunnel I reviewed the patient's current home meds Patient did receive some tizanidine. She is on losartan for blood pressure Alternate historians: None Differential diagnosis: including but not limited to and based on the above HPI, review of systems and physical exam: Patient has musculoskeletal back pain with no neurologic symptoms. No imaging or lab work were indicated today. Reexamination: Patient remained stable. No increased work of breathing. No altered mental status. No focal motor deficits. Assessment and plan: Sciatica ?IM Decadron, Toradol, Norflex. P.o. [place] - Discharged home - Discussed plan with patient. Answered any questions. - Evaluation and treatment of this problem were appropriate in the emergency setting. No radiology studies performed this visit Discharge Plan Discharge Patient Disposition: Home Clinical Impression: Sciatica Condition: Stable Prescriptions: New hydrocodone-acetaminophen 5-325 mg tablet 1 tab PO Q6H PRN (Reason: pain) Qty: 20 0RF prednisone 20 mg tablet 60 mg PO DAILY Qty: 20 0RF Rx Instructions: 3 tabs (60 mg) x 3 days. 2 tabs (40 mg) x 3 days. 1 tab (20 mg) x 3 days. 1/2 tab (10 mg) x 4 days diclofenac sodium 50 mg tablet,delayed release (DR/EC) 50 mg PO BID PRN (Reason: pain) Qty: 14 0RF polyethylene glycol 3350 [Miralax] 17 gram/dose powder 17 g PO DAILY Qty: 510 0RF Rx Instructions: Take 1 scoop daily while taking pain medications. No Action tizanidine 4 mg tablet 4 mg PO TID PRN (Reason: muscle spasms) cephalexin 500 mg capsule 500 mg PO TID Zepbound 5 mg/0.5 mL pen injector 5 mg SUBCUT Q7D simvastatin 10 mg tablet 10 mg PO QPM valsartan-hydrochlorothiazide 160-25 mg tablet 1 tab PO QAM Discharge Orders: Discharge ED (Routine); Ordered 07/19/25 Ordered By: Amina Ware Referrals: Driss Weinstein MD [Primary Care Provider, Family Practice] Patient Instructions: Sciatica (ED), Lower Back Exercises (ED), Opioid Safety, Pain Management, Patient Portal & Harriet Instructions Activity Restrictions/Additional Instructions: Thank you for choosing [facility] for your healthcare needs today. You have been screened and evaluated and felt safe for discharge. Health conditions do change or evolve sometimes and as such it is important that you follow up with your Primary Doctor to be re checked, 3-5 days is a general good time frame for follow up. You are always welcome to return to the ED for re assessment if your symptoms are worsening or you have new concerns. (Please note that included in your discharge packet is information concerning opioid safety and pain management. This information is given to all patients who are discharged from the ER regardless of their discharge diagnosis or the medicines they usually take or are prescribed.) Stand Alone Forms: Work/School Release Print Language: Cymraes Coding Level of Care Code ED Manager Ui for Serafin Cueto
[2025-07-19] MEDS: orphenadrine 30 mg/mL Inj 2 mL 60 MG IM (11:26)
[2025-07-19 11:29] VITALS: RESP 18; O2SAT 98
== END 2025-07-19 11:51 | disposition home or self-care (01) ==
PROVIDERS: Emergency Provider Emergency Medicine; PCP Family Medicine
DX: M54.30 Sciatica, unspecified side (principal)
CPT/HCPCS: 96372; 99284; J1100; J1885; J2360